=== PATIENT | male | born 1995 | race Caucasian/White ===

== ENCOUNTER 2024-12-14 09:02 | Outpatient (CLI) | payer OTHER, SELFPAY ==
--- OUTSIDE RECORDS SUMMARY | 2024-12-14 09:12 | XMS_ITS | Patient Health Record ---
Author Organization [facility] Address [address] [place] [address] Care Team Providers Care Pipe Threading Machine Operator Name Role Phone Papo Rich DO Primary Care Provider Mark Treviño Unavailable [phone] Reason For Referral No Information Medications Medication SIG (Take, Route, Fr equency, Duration) Notes Start Date End Date Status OTC/Vitamins MVI Active Dicyclomine HCl 10 MG 1 capsule Orally prn Active PriLOSEC OTC Active Robinul-Forte 2 MG 1 tablet Orally Twic e a day; Duration: 30 day(s) 01/25/2018 Active Social History Tobacco Use: Social History Observation Description Date Details (start date - stop date) Never Smoker NA - NA Tobacco Use/Smoking Question Answer Notes Are you a nonsmoker Section Notes: 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
--- OUTSIDE RECORDS SUMMARY | 2024-12-14 09:12 | XMS_ITS | Clinical Summary ---
Author Organization [facility] Address [address] 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 This disclosure is being madepursuant to the Care Everywhere program and may not contain all information available regarding this patient. 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 Gender Identity Not on file Sexual Orientation Not on file Plan of Treatment Health Maintenance Due Date Last Done Comments HIV SCREENING 2012 HEPATITIS C SCREENING 07/05/2015 DTAP/TDAP/TD VACCINES (1 - Tdap) 2016 HEPATITIS B VACCINE (1 of 3 - 19+ 3-dose series) 2016 DEPRESSION SCREENING 02/28/2024 HPV VACCINE (1 - 3-dose SCDM series) 2024 COVID-19 VACCINE ( - 2023-2 5 season) 2024 INFLUENZA VACCINE (#1) 2024 ZOSTER VACCINE (1 of 2) 07/10/2047 HIB VACCINE Aged Out No longer eligi ble based on patient's age to complete this topic MENINGOCOCCAL (Group B) VACC INE SHARED DECISION-MAKING Aged Out No longer eligibl e based on patient's age to complete this topic MENINGOCOCCAL GROUPS A/C/Y/W VACCINE Aged Out No longer eligible b ased on patient's age to complete this topic PNEUMOCOCCAL VACCINE Aged Out No long er eligible based on patient's age to complete this topic Insurance
--- OUTSIDE RECORDS SUMMARY | 2024-12-14 09:12 | XMS_ITS | Clinical Summary ---
Author Organization [facility] [address] [place] [address] Address [address] [place] [address] Care Team Providers Care Control Clerk Food And Beverage Name Role Phone Papo Rich DO Primary Care Provider Allergies No known active allergies Medications ibuprofen (ADVIL,MOTRIN) suspension 100 mg/5 mL Take by mouth every 4 (four) hours as needed for pain Active Active Problems Problem Noted Date Diagnosed Date Cough 03/01/2016 Overview (06/02/2016): Cough Shoulder pain 05/06/2015 Overview (06/02/2016): Shoulder pain Strain of rectus femoris muscle 05/06/2015 Overview (06/02/2016): Strain of rectus femoris muscle Pain in the coccyx 08/07/2013 Overview (06/02/2016): Coccyx pain Medical examinations/reports status 09/05/2012 Overview (06/01/2016): Health care maintenance Plantar fasciitis 08/14/2012 Overview (06/01/2016): Plantar fasciitis of left foot Pneumonia 12/01/2011 Overview (06/01/2016): Pneumonia Immunizations Immunization Administration Dates Next Due DTaP 5 Pertussis 06/25/2002, 9,01/20/1998,11/12,1997 HPV, Quadrivalent 09/29/2014,09/26/2013,09/20/19 13 Hep B, Adolescent or Pediatric 01/20/1998,1997,1997 Hib (HbOC) 10/13/1998, 8,1997,09/09 IPV 06/25/2002,1997,1997 Influenza, Trivalent, High D ose, Split, Preservative Free, Intramuscular 01/23/2016 Influenza, Trivalent, IM (MDV) 2,01/24/2011,01/12/2010,12/17 MMR 06/25/2002,07/14/1998 Meningococcal MCV4P (Menactra) 09/26/2013 Meningococcal Polysaccharide (Menomune) 09/09/2010 OPV 10/13/1998 Tdap 08/12/2008 Varicella 09/26/2013,07/14/1998 Surgical History Surgery Date Site/Laterality Comments OTHER SURGICAL HISTORY 5-7 36 wks product nl preg: Vag delivery [facility]; did well OTHER SURGICAL HISTORY FX forearm the left: Admit [facility] - req'd pins (out) ARM SURGERY COLON SURGERY Medical History Medical History Date Comments Hx Other Medical 2012 Nasal cautery Hx Other Medical 1997 5-7 36 wks prod uct nl preg Hx Other Medical 2009 FX forearm righ t Hx Other Medical 2012 FX forearm the left; Outcome: Pins removed 09/08. Family History Medical History Relation Name Comments Other Brother Sonido Megalenceph/cap hemangioma syndrome; Other Father Tics; as a chil d Breast cancer Mother Cancer, breast ; 2009 Other Other 1 Family history of Hydroceph/spina bifida; Hypertension Other 2 Family history of Hypertension; Hyperlipidemia Other 3 Family histor y of Hyperlipidemia; Other Other 4 No family histo ry of Diabetes mellitus; Other Other 5 No family histo ry of Sudden <50; Breast cancer Other 6 Family history of Cancer, breast; Relation Name Status Comments Brother Sonido Alive Father Alive Mother Alive Other 1 Other 2 Other 3 Other 4 Other 5 Other 6 Social History Tobacco Use Types Packs/Day Years Used Date Smoking Tobacco: Never Smokeless Tobacco: Never Sex and Gender Information Value Date Recorded Sex Assigned at Not on file 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 Gender Identity Not on file Sexual Orientation Not on file Obstetrics History Last Filed Vital Signs Vital Sign Reading Time Taken Comments Blood Pressure 123/83 01/28/2019 11:11 AM FRONT WINDOW CASHIER Pulse 63 01/28/2019 11:11 AM FRONT WINDOW CASHIER Temperature 36.7 C (98.1 F) 04/02/2018 5:39 PM FRONT WINDOW CASHIER Respiratory Rate 20 04/02/2018 5:39 PM FRONT WINDOW CASHIER Oxygen Saturation 98% 04/02/2018 5:39 PM FRONT WINDOW CASHIER Inhaled Oxygen Concentration - - Weight 73.9 kg (163 lb) 01/28/2019 11:11 AM FRONT WINDOW CASHIER Height 182.9 cm (6') 01/28/2019 11:11 AM FRONT WINDOW CASHIER Body Mass Index 22.11 01/28/2019 11:11 AM FRONT WINDOW CASHIER Plan of Treatment Not on file Insurance [facility] CHOICE PLUS Care Teams Control Clerk Food And Beverage Relationship Specialty Start Date End Date Papo Rich DO [address] [place] [id number] PCP - General Family Practice 08/11/16
--- OUTSIDE RECORDS SUMMARY | 2024-12-14 09:12 | XMS_ITS | Encounter Summary ---
Author Organization [facility] Address [address] [place] [address] Care Team Providers Care Wet Machine Operator Name Role Phone Unavailable Primary Care Provider Unavailabl e Encounter Details Date Type Department Care Team (Late st Contact Info) Description 11/24/2017 Lab Requisition [facility] Care DermPath Lab [address] [place] [id number] Anca Lewis MD [address] [facility] [place] [address] Social History Tobacco Use Types Packs/Day Years Used Date Smoking Tobacco: Never Assessed Sex and Gender Information Value Date Recorded Sex Assigned at Not on file 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 Gender Identity Not on file Sexual Orientation Not on file documented as of this encounter Plan of Treatment Not on file documented as of this encounter Procedures Procedure Name Priority Date/Time Associated Diagnosis Comments DERMATOPATH TECHNICAL REPORT Routine 11/23/2017 12:00 AM CDT documented in this encounter Results * DERMATOPATH TECHNICAL REPORT (11/23/2017 12:00 AM CDT) Case Report Dermatopathology Report Case: [id number] Authorizing Provider: Anca Lewis MD Collected: 11/23/2017 12:00 AM Pathologist: Arlen Richmond MD Received: 11/24/2017 06:27 AM Specimen: Skin, upper lip right side 8 11:44 AM CDT DERMATOPATHOLOGY LABORATORY Clinical History R/O cyst. Check margins. 8 11:44 AM CDT DERMATOPATHOLOGY LABORATORY Gross Description Specimen A: Received is one formalin filled container labeled with the patient's name and designated upper lip right side. The specimen consists of a punch measuring 3d5e5mm. Jar 0. [facility] Dermatopathology Laboratory performed the technical component only. 11:44 AM T DERMATOPATHOLOGY LABORATORY Embedded Images 11:44 AM T DERMATOPATHOLOGY LABORATORY DISCLAIMER An external and internal positive and negative controls are appropriate for the histochemical, immunohistochemical and immunofluorescence stain(s) in this case (if any), except where stated explicitly. The performance characteristics of the stain(s) cited in this report were developed and its performance characteristic determined by the Dermatopathology Laboratory at [facility]. These tests need not be, and therefore are not, approved by the [place] Food and Drug Administration. The tests are used for clinical purposes. 11:44 AM [facility] DERMATOPATHOLOGY LABORATORY at 1144 CDT Pathology/Cytolog y TISSUE SPECIMEN FROM SKIN / Unknown 11/23/2017 11/24/2017 6:27 AM CDT Anca Lewis MD LAB - PATHOLOGY/CYTOLOGY OR DERABLES Final Result DERMATOPATHOLOGY LABORATORY [facility] - Department of Dermatology [address] [place] [address], [facility] [phone] documented in this encounter Visit Diagnoses Not on filedocumented in this encounter
[2024-12-14 10:17] LABS: Thyroid Stimulating Hormone 1.690 uIU/mL (0.465-4.680)
[2024-12-20 21:07] LABS: Testosterone, Total, LC/MS 397 ng/dL (.)
== END 2024-12-14 09:03 | disposition home or self-care (01) ==
LOC: ANHLAB 09:10
PROVIDERS: PCP Family Medicine; Visit Provider Family Medicine
DX: N52.9 Male erectile dysfunction, unspecified (principal); R53.83 Other fatigue
CPT/HCPCS: 36415; 84403; 84443